=== PATIENT | female | born 1945 | race Caucasian/White ===

== ENCOUNTER 2019-02-25 09:03 | Emergency (ER) | payer MEDICARE, BC ==
[2019-02-25 09:11] VITALS: BP 137/82
--- NOTE | 2019-02-25 10:25 | UC ---
Throat Pain/Nasal Man HPI - HPI Summary HPI Summary: 73-year-old woman comes in with a chief complaint of 2 weeks of upper respiratory tract infection symptoms. She's been having a runny nose.. Feels like she has postnasal drip. She has been using saline nasal spray which does help some with the symptoms. Rhinorrhea has now turned green. Denies any shortness of breath or chest congestion. - History of Current Complaint Chief Complaint: UCRespiratory Stated Complaint: COUGH CONGESTION Time Seen by Provider: 02/25/19 10:17 Pain Intensity: 0 - Allergies/Home Medications Allergies/Adverse Reactions: Allergies Allergy/AdvReac Type Severity Reaction Status Date / Time gluten Allergy Diarrhea Verified 02/25/19 09:16 Aexspjr-Dam-Xml Reductase Allergy Muscle Ache Verified 02/25/19 09:16 Inhibitor Sulfa (Sulfonamide Allergy Rash And Verified 02/25/19 09:16 Antibiotics) Itching HAYFEVER Allergy RUNNY Uncoded 02/25/19 09:16 NOSE, ITCHY EYES Home Medications: Home Medications Alirocumab [Praluent] 75 mg SC 02/25/19 [History] Bepotastine Besilate [Bepreve] 10 ml OP BID 02/25/19 [History Confirmed 02/25/19 ] Cyclosporine 0.05% OPHTH (NF) [Restasis 0.05% OPHTH] 1 drop BOTH EYES BID [History Confirmed 02/25/19] Diclofenac Sodium [Diclo Gel] 1 each TP BID PRN 02/25/19 [History Confirmed 11/11] Eplerenone [Inspra] 50 mg PO 02/25/19 [History] Folic Acid 1 mg PO 02/25/19 [History] Loperamide HCl [Loperamide] 2 mg PO ONCE 02/25/19 [History Confirmed 02/25/19] Methotrexate TAB* 25 mg PO WEEKLY 02/25/19 [History Confirmed 02/25/19] Multivitamin [Multivitamins] 1 cap PO DAILY 02/25/19 [History Confirmed 02/25/19 ] Pravastatin (NF) [Pravachol (NF)] 10 mg PO SEE INSTRUCTIONS 02/25/19 [History Confirmed 02/25/19] Turmeric Root Extract [Ra Turmeric] 500 mg PO BID 02/25/19 [History Confirmed 07 /03/19] PMH/Surg Hx/FS Hx/Imm Hx Previously Healthy: Yes Endocrine History: Hypothyroidism Cardiovascular History: Hypertension Other History Of: Anticoagulant Therapy - Lovenox until 10/17/12 - Surgical History Surgical History: Yes Surgery Procedure, Year, and Place: TONSILLECTOMY A CHILD,. [place] [facility] [place] HEART CATHERIZATION WITH 2 STENTS PLACEMENT, [facility]. 2005 RIGHT [place] [facility] [place] 2010 RIGHT [place]UMB [place] , [place]. 2012 LEFT TOTAL KNEE [place]PLAC[place], [facility] [place] 09/2013 [place] [facility] [place]. 04/2014 RIGHT GREAT TOE JOINT SURGERY WITH FIRST METATARSAL OSTEOTOMY, [facility] [place]. 02/2016 [employer] DUAL CHAMBER PACEMAKER, [facility] [place] - Family History Known Family History: Positive: Non-Contributory - Social History Alcohol Use: Rare Substance Use Type: None Smoking Status (MU): Former Smoker Type: Cigarettes Amount Used/How Often: 1/2 PPD FOR 2 YEARS Length of Time of Smoking/Using Tobacco: 2 YEAR Have You Smoked in the Last Year: No When Did the Patient Quit Smoking/Using Tobacco: 1961 Review of Systems All Other Systems Reviewed And Are Negative: Yes Constitutional: Positive: Negative Skin: Positive: Negative Eyes: Positive: Negative ENT: Positive: Nasal Discharge, Sinus Congestion Respiratory: Positive: Other - SEE HPI Cardiovascular: Positive: Negative Gastrointestinal: Positive: Negative Motor: Positive: Negative Neurovascular: Positive: Negative Musculoskeletal: Positive: Negative Neurological: Positive: Negative Psychological: Positive: Negative Is Patient Immunocompromised?: Yes - ON METHOTREXATE Physical Exam Triage Information Reviewed: Yes Appearance: No Pain Distress, Well-Nourished, Ill-Appearing - MILD Vital Signs: Initial Vital Signs Temp 97.8 F 02/25/19 09:09 Pulse 84 02/25/19 09:09 Resp 17 02/25/19 09:09 BP 137/82 02/25/19 09:09 Pulse Ox 100 02/25/19 09:09 Vital Signs Reviewed: Yes Eye Exam: Normal Eyes: Positive: Conjunctiva Clear ENT: Positive: Pharyngeal erythema, Nasal congestion, Nasal drainage, TMs normal Neck: Positive: Supple Respiratory: Positive: Lungs clear, Normal breath sounds, No respiratory distress Cardiovascular: Positive: RRR Musculoskeletal Exam: Normal Musculoskeletal: Positive: Strength Intact, ROM Intact Neurological Exam: Normal Neurological: Positive: Alert, Muscle Tone Normal Psychological Exam: Normal Psychological: Positive: Age Appropriate Behavior Skin Exam: Normal Throat Pain/Nasal Course/Dx - Differential Dx/Diagnosis Provider Diagnosis: Sinusitis Discharge - Sign-Out/Discharge Documenting (check all that apply): Patient Departure All imaging exams completed and their final reports reviewed: No Studies - Discharge Plan Condition: Stable Disposition: HOME Prescriptions: Amoxicillin PO (*) [Amoxicillin 875 MG (*)] 875 mg PO BID #20 tab Patient Education Materials: Sinusitis (ED) Referrals: Mahad Sanches MD [Primary Care Provider] - Additional Instructions: FOLLOW UP WITH YOUR DOCTOR IF NOT COMPLETELY IMPROVED. GET RECHECKED SOONER IF YOUR CONDITION WORSENS OR ANY QUESTIONS OR CONCERNS. - Billing Disposition and Condition Condition: STABLE Disposition: Home
== END 2019-02-25 10:30 | disposition home or self-care (01) ==
LOC: UCEAST 09:03
DX: J32.9 Chronic sinusitis, unspecified (principal); E03.9 Hypothyroidism, unspecified; I10 Essential (primary) hypertension; Z79.01 Long term (current) use of anticoagulants; Z87.891 Personal history of nicotine dependence; Z88.2 Allergy status to sulfonamides
CPT/HCPCS: 99212; G0463

== ENCOUNTER → 2019-10-21 09:57 | Day surgery (SDC) | payer MEDICARE, BC ==
[~2019-10-21 09:57] MED LIST: Heparin 2 UNITS/ML IVPREMIX* 2,000 ML IV ONE; Heparin(*) 1000 UNIT/ML 10 ML VIAL CATH LAB IV ONE; Iodixanol 320 (CONTRAST) 100 ML SDV ONE; Lidocaine 1% INJ* 10 MG/ML 30 ML SDV ONE; Midazolam* 1 MG/ML 5 ML VIAL (5 MG) ONE; NS 0.9% 1000 ML** 1,000 ML IV SCH; VERAPAMIL 2.5 MG/ML 2 ML VIAL ** 5 mg/2 ml ONE; fentaNYL* 50 MCG/ML 2 ML VIAL (100 MCG VIAL) ONE; nitroGLYCERIN DRIP* 25,000 MCG/250 ML BTL ONE
[2019-10-21 16:48] VITALS: BP 116/57
--- NOTE | 2019-10-22 09:08 | CATH ---
CC: Dr. Mahad Sanches; Dr. Aramis Pond, [facility] * CARDIAC CATHETERIZATION REPORT: DATE OF PROCEDURE: 10/21/19 - [facility] CATH INDICATION FOR THE PROCEDURE: Asked by Dr. Aramis Pond to perform coronary arteriography to assess the presence of significant coronary artery disease as possible cause for deterioration of left ventricular systolic function versus possibility of pacemaker induced cardiomyopathy. PROCEDURE: Coronary arteriography, left heart catheterization. CONSENT: The patient was interviewed and examined in the holding area where the risks and benefits were explained. She understood them and wished to proceed. APPROACH UTILIZED: The right radial artery was assessed for size and found to be acceptable for an approach. PRECARDIAC CATHETERIZATION LABORATORY RESULTS: Hemoglobin and hematocrit of 14.8 and 44 with a platelet count of 215,000. BUN and creatinine of 18 and 1.24. Sodium 143, potassium 4.2, chloride 106, bicarb 31. INR 0.97. EQUIPMENT UTILIZED: 1. Right radial artery sheath with a 6-Yemeni Glidesheath Slender. 2. Diagnostic guidewire was a 260 length [place] curved guidewire. 3. Diagnostic coronary catheter was utilized included initially a TIG4 catheter for the left coronary artery. The right coronary artery had an ectopic high anterior takeoff and multiple catheters were utilized was eventually a 5-Yemeni AR2 curve catheter utilized to cannulate the right coronary artery. 4. Left heart catheterization catheter was a 5-Yemeni TIG short radial catheter. 5. Closure device was a regular length Vasc Band closure device. MEDICATIONS GIVEN DURING THE PROCEDURE: Included a radial artery cocktail with 4000 units of heparin, 300 mcg of nitroglycerin, 3 mg of verapamil, 1% Xylocaine was used for local anesthesia. DESCRIPTION OF PROCEDURE: The patient was brought to the cardiovascular laboratory where a formal timeout was performed. She was prepped and draped in sterile fashion. Under ultrasound guidance, right radial artery was cannulated and the sheath was placed. CORONARY ARTERIOGRAPHY: Left coronary artery was accomplished utilizing the TIG4 catheter. After multiple different diagnostic catheters were tried, an AR2 of 5- Yemeni catheter was utilized due to a high anterior takeoff of the right coronary artery. Following this, left heart catheterization was performed utilizing the 5- Yemeni pigtail catheter. Left ventriculography was not performed given the fact that she has already had a recent echocardiogram and the fact that she had a mild renal insufficiency and received a fair amount of contrast to find the right coronary artery. At the end of the case, the catheter and sheath were removed and hemostasis was obtained with a Vasc band. The total contrast use was 130 cc of Visipaque dye. The radiation exposure included 26.7 minutes of fluoro time. The air kerma radiation was 2669 mGy. The DAP radiation was 15,068 mGy per meter squared. RESULTS: HEMODYNAMIC DATA: Left ventricular pressure was 124 over left ventricular end- diastolic pressure of 15, central aortic pressure was 122/47 with mean of 76. CORONARY ARTERIOGRAPHY: A. Left coronary artery: 1. Left main. There was a calcified 25% to 30% ostial/proximal left main. 2. Left anterior descending artery. The left anterior descending artery had mild luminal regularities with narrowing as much as 25% to 30%. There was no significant stenosis seen. It supplied a small first diagonal branch followed by a mid larger diagonal branch extending to the lateral apical region. The continuation of the LAD extended to the apical region. There was tortuosity to the vessel, mild luminal irregularities, but no significant obstruction. 3. Circumflex artery - a trifurcation marginal branch was present with a proximal stent in it. There was mild disease in the proximal segment of 30%. This stent bifurcated into a small caliber superior branch, which had a 55% to 60% obstruction and a larger inferior branch was extended to the low posterolateral wall. There was no significant obstruction seen. Of note, the inferior branch was the branch that was stented. The continuation of circumflex supplied 3 more branches supplying the low posterolateral wall, which had a corkscrew appearance, but no significant obstruction. B. Right coronary artery - a dominant vessel supplying only the PDA, which was short in nature. Acute marginal branch supplied the distal PDA territory. There was a ostial 55% to 60% lesion noted. There was a mild 30% mid lesion noted. The mid to distal portion of the vessel had a 45% to 50% obstruction noted. OVERALL ASSESSMENT: Moderate coronary artery disease involving the ostium of the right coronary artery and mid right coronary artery without critical disease noted throughout the coronary system. Given the globally described left ventricular systolic dysfunction, this degree of coronary artery disease does not seem to account for that degree of left ventricular systolic dysfunction. There was increased left ventricular end-diastolic pressure. Of note, she initially had low filling pressures most likely from being n.p.o. and from her diuretics. There was no evidence of significant increase in left ventricular end-diastolic pressure. This information was shared with Dr. Pond, the patient's primary instructional assistant. The patient will have a repeat check of the BUN and creatinine on Saturday of this week in light of her increased baseline creatinine. [id number]/[facility] #: [id number] MTDD
== END | disposition home or self-care (01) ==
LOC: CHICATH 09:57
PROVIDERS: ATTEND Internal Medicine Cardiovascular Disease
DX: I25.10 Atherosclerotic heart disease of native coronary artery without angina pectoris (principal); I42.9 Cardiomyopathy, unspecified; Z95.0 Presence of cardiac pacemaker; E83.42 Hypomagnesemia; R42 Dizziness and giddiness; I10 Essential (primary) hypertension; E78.00 Pure hypercholesterolemia, unspecified; E78.5 Hyperlipidemia, unspecified; I49.5 Sick sinus syndrome; I44.1 Atrioventricular block, second degree
CPT/HCPCS: 93458; J1644; J2250; J3010